=== PATIENT | female | born 1950 | race Caucasian/White ===

== ENCOUNTER 2021-02-23 19:33 | Emergency (ER) | payer MEDICARE, OTHER ==
[2021-02-23] MEDS ORDERED: Nitrofurantoin Monohydrate/Macrocrystalline 100 MG Cap PO ONE ×2 (19:34→21:35)
[2021-02-23 20:12] VITALS: BP 167/68; PULSE 73
--- NOTE | 2021-02-23 20:12 | CT ---
PROCEDURE INFORMATION: Exam: CT Head Without Contrast Exam date and time: 02/23/2021 8:00 PM Age: 70 years old Clinical indication: Speech disturbance; Additional info: Slurred speech TECHNIQUE: Imaging protocol: Computed tomography of the head without contrast. Radiation optimization: All CT scans at this facility use at least one of these dose optimization techniques: automated exposure control; mA and/or kV adjustment per patient size (includes targeted exams where dose is matched to clinical indication); or iterative reconstruction. Other technique: STROKE PROTOCOL was implemented. COMPARISON: (No prior similar studies are available for comparison.) FINDINGS: There is no mass lesion or mass effect. There is diffuse central and cortical atrophy consistent with age. There is no CT evidence of acute parenchymal ischemia. There is no intra-axial or extra-axial hemorrhage. There is no evidence of acute obstructive sinonasal disease. Mastoid air cells are grossly normal. Visualized osseous structures are normal. Other findings: EXAM TYPE: CT of the BRAIN; DATE AND TIME: 02/23/2021 8:00 PM; CLINICAL INFORMATION:; Speech disturbance; Additional info: Slurred speech IMPRESSION: 1. Central and cortical atrophy consistent with age. 2. No CT evidence of acute infarction, intracranial hemorrhage or mass. ASSESSMENT: ASPECTS ([place] Stroke Program Early CT Score) is 10.
--- NOTE | 2021-02-23 20:25 | EDM.PDOC ---
ED HPI GENERAL MEDICAL PROBLEM - General Chief Complaint: Neurological Problem Stated Complaint: SLURRED SPEECH Time Seen by Provider: 02/23/21 19:40 Source of Information: Reports: Patient, Family, RN, RN Notes Reviewed History Limitations: Reports: No Limitations - History of Present Illness INITIAL COMMENTS - FREE TEXT/NARRATIVE: Patient is a 70-year-old female who presents to ER with her with complaint of slurred speech. Patient's states they were coming in from the [place], and the patient was having difficulty speaking to her . Patient states it is getting better at this time but states she was unable to think of the words she wanted to say to him as well as get words out of her mouth. Patient states she is diabetic, had not checked her blood sugar, and did eat a candy bar on her way and to the ER. Patient states she had a headache that came on quickly while driving into town. Patient states her right arm was tingly and numb. 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 But the headache generally comes after those initial symptoms. Patient denies ever having Covid. States she has been vaccinated. Upon arrival to the ER, patient denies any visual disturbances, any recent illnesses. Admits to history of type 2 diabetes and ocular migraines. Patient rates headache 3-4/10. All symptoms have resolved upon arrival to the ER. NIH score = 0. Patient denies any urinary symptoms such as frequency, urgency, burning with urination. Onset: Today, Sudden - Related Data Allergies Allergy/AdvReac Type Severity Reaction Status Date / Time acetaminophen [From Percocet] AdvReac Nausea and Verified 02/23/21 20:12 Vomiting oxycodone HCl [From Percocet] AdvReac Nausea and Verified 02/23/21 20:12 Vomiting Home Meds: Home Meds metFORMIN [Glucophage] 1 tab PO TID 08/07/14 [History] Aspirin [Halfprin] 162 mg PO DAILY 01/26/15 [History] Lisinopril 2.5 mg PO BID 01/26/15 [History] Cholecalciferol (Vitamin D3) [Vitamin D] 5,000 unit PO DAILY 02/23/21 [History] Glimepiride 2 mg PO BID 02/23/21 [History] Magnesium Oxide 400 mg PO DAILY 02/23/21 [History] Multivitamin 1 each PO DAILY 02/23/21 [History] Pantoprazole [ProTONIX] 40 mg PO DAILY 02/23/21 [History] Pravastatin [Pravachol] 10 mg PO DAILY 02/23/21 [History] ED ROS GENERAL - Review of Systems Review Of Systems: Comprehensive ROS is negative, except as noted in HPI. ED EXAM, NEURO - Physical Exam Exam: See Below Exam Limited By: No Limitations General Appearance: Alert, WD/WN, No Apparent Distress, Anxious Eye Exam: Bilateral Eye: EOMI, Normal Inspection, PERRL (3 brisk) Ears: Normal External Exam, Hearing Grossly Normal Nose: Normal Inspection Throat/Mouth: Normal Inspection, Normal Voice, No Airway Compromise Head Exam: Atraumatic, Normocephalic Neck: Normal Inspection, Supple, Non-Tender, Full Range of Motion Respiratory/Chest: No Respiratory Distress, Lungs Clear, Normal Breath Sounds, No Accessory Muscle Use, Chest Non-Tender Cardiovascular: Normal Peripheral Pulses, Regular Rate, Rhythm, No Edema, No Gallop, No JVD, No Murmur, No Rub GI/Abdominal: Normal Bowel Sounds, Soft, Non-Tender, No Organomegaly, No Distention, No Abnormal Bruit, No Mass (Female) Exam: Deferred Rectal (Female) Exam: Deferred Neurological: Alert, Normal Mood/Affect, Normal Dorsiflexion, CN II-XII Intact, Normal Plantar Flexion, Normal Gait, Normal Reflexes, No Motor/Sensory Deficits, Oriented x 3 Back Exam: Normal Inspection, Full Range of Motion Extremities: Normal Inspection, Normal Range of Motion, Non-Tender, No Pedal Edema, Normal Capillary Refill Psychiatric: Normal Affect, Normal Mood, Anxious Skin Exam: Warm, Dry, Intact, Normal Color, No Rash #1 Interpretation EKG Date: 02/23/21 Time: 20:43 Rhythm: NSR Rate (Beats/Min): 65 P-Wave: Present QRS: LBBB ST-T: Normal QT: Normal Comparison: No Change Course - Vital Signs Last Recorded V/S: Last Vital Signs Temp 98.3 F 02/23/21 20:11 Pulse 73 02/23/21 20:11 Resp 16 02/23/21 20:11 BP 167/68 H 02/23/21 20:11 Pulse Ox 100 02/23/21 20:11 - Orders/Labs/Meds Orders: Active Orders 24 hr Category Date Time Status CULTURE URINE [RM] Stat Lab 02/23/21 20:49 Received Labs: Laboratory Tests 02/23/21 02/23/21 02/23/21 Range/Units 20:10 20:10 20:10 WBC 9.5 (5.0-10.0) 10^3/uL RBC 4.10 L (4.2-5.4) 10^6/uL Hgb 12.8 (12.0-16.0) g/dL Hct 38.9 (37.0-47.0) % MCV 94.9 (80-100) fL MCH 31.2 (27.0-34.0) pg MCHC 32.9 L (33.0-35.0) g/dL Plt Count 299 (150-450) 10^3/uL Neut % (Auto) 46.9 (42.2-75.2) % Lymph % (Auto) 43.4 (20.5-50.1) % [place] % (Auto) 7.0 (2-8) % Eos % (Auto) 2.4 (1.0-3.0) % Baso % (Auto) 0.3 (0.0-1.0) % PT 9.8 (9.0-12.0) SEC INR 1.0 (0.9-1.2) Sodium 141 (136-145) mmol/L Potassium 4.0 (3.5-5.1) mmol/L Chloride 103 (98-107) mmol/L Carbon Dioxide 24 (21-32) mmol/L Anion Gap 18.0 H (7-13) mEq/L BUN 27 H (7-18) mg/dL Creatinine 1.05 H (0.55-1.02) mg/dL Est Cr Clr Drug Dosing 47.34 mL/min Estimated GFR (MDRD) 52 BUN/Creatinine Ratio 25.7 (No establ ref range) Glucose 116 H (70-99) mg/dL POC Glucose (70-99) mg/dL Calcium 9.0 (8.5-10.1) mg/dL Magnesium 1.4 L (1.8-2.4) mg/dL Total Bilirubin 0.2 (0.2-1.0) mg/dL AST 13 L (15-37) U/L ALT 40 (14-59) U/L Alkaline Phosphatase 101 (46-116) U/L Troponin I < 0.017 (0.000-0.056) ng/mL C-Reactive Protein 0.2 (0.0-0.9) mg/dL Total Protein 7.8 (6.4-8.2) g/dL Albumin 3.9 (3.4-5.0) g/dL Globulin 3.9 Albumin/Globulin Ratio 1.0 Urine Color (YELLOW) Urine Appearance (CLEAR) Urine pH (5.0-9.0) Ur Specific [place] (1.005-1.030) Urine Protein (NEGATIVE) Urine Glucose (UA) (NEGATIVE) Urine Ketones (NEGATIVE) Urine Occult Blood (NEGATIVE) Urine Nitrite (NEGATIVE) Urine Bilirubin (NEGATIVE) Urine Urobilinogen (0.2-1.0) mg/dL Ur Leukocyte Esterase (NEGATIVE) Urine RBC /HPF Urine WBC (0-5/HPF) /HPF Ur Epithelial Cells (NOT SEEN) /HPF Urine Bacteria (0-FEW/HPF) /HPF Urine Opiates Screen (NEGATIVE) Ur Oxycodone Screen (NEGATIVE) Urine Methadone Screen (NEGATIVE) Ur Barbiturates Screen (NEGATIVE) U Tricyclic Antidepress (NEGATIVE) Ur Phencyclidine Scrn (NEGATIVE) Ur Amphetamine Screen (NEGATIVE) U Methamphetamines Scrn (NEGATIVE) Urine MDMA Screen (NEGATIVE) U Benzodiazepines Scrn (NEGATIVE) Urine Cocaine Screen (NEGATIVE) U Marijuana (THC) Screen (NEGATIVE) Ethyl Alcohol < 3 (0) mg/dL 02/23/21 02/23/21 02/23/21 Range/Units 20:18 20:49 20:49 WBC (5.0-10.0) 10^3/uL RBC (4.2-5.4) 10^6/uL Hgb (12.0-16.0) g/dL Hct (37.0-47.0) % MCV (80-100) fL MCH (27.0-34.0) pg MCHC (33.0-35.0) g/dL Plt Count (150-450) 10^3/uL Neut % (Auto) (42.2-75.2) % Lymph % (Auto) (20.5-50.1) % [place] % (Auto) (2-8) % Eos % (Auto) (1.0-3.0) % Baso % (Auto) (0.0-1.0) % PT (9.0-12.0) SEC INR (0.9-1.2) Sodium (136-145) mmol/L Potassium (3.5-5.1) mmol/L Chloride (98-107) mmol/L Carbon Dioxide (21-32) mmol/L Anion Gap (7-13) mEq/L BUN (7-18) mg/dL Creatinine (0.55-1.02) mg/dL Est Cr Clr Drug Dosing mL/min Estimated GFR (MDRD) BUN/Creatinine Ratio (No establ ref range) Glucose (70-99) mg/dL POC Glucose 109 H (70-99) mg/dL Calcium (8.5-10.1) mg/dL Magnesium (1.8-2.4) mg/dL Total Bilirubin (0.2-1.0) mg/dL AST (15-37) U/L ALT (14-59) U/L Alkaline Phosphatase (46-116) U/L Troponin I (0.000-0.056) ng/mL C-Reactive Protein (0.0-0.9) mg/dL Total Protein (6.4-8.2) g/dL Albumin (3.4-5.0) g/dL Globulin Albumin/Globulin Ratio Urine Color Yellow (YELLOW) Urine Appearance Slightly cloudy (CLEAR) Urine pH 5.0 (5.0-9.0) Ur Specific [place] 1.020 (1.005-1.030) Urine Protein Negative (NEGATIVE) Urine Glucose (UA) Negative (NEGATIVE) Urine Ketones Negative (NEGATIVE) Urine Occult Blood Trace-intact H (NEGATIVE) Urine Nitrite Negative (NEGATIVE) Urine Bilirubin Negative (NEGATIVE) Urine Urobilinogen 0.2 (0.2-1.0) mg/dL Ur Leukocyte Esterase Small H (NEGATIVE) Urine RBC 0-5 /HPF Urine WBC 10-20 H (0-5/HPF) /HPF Ur Epithelial Cells Moderate H (NOT SEEN) /HPF Urine Bacteria Moderate H (0-FEW/HPF) /HPF Urine Opiates Screen Negative (NEGATIVE) Ur Oxycodone Screen Negative (NEGATIVE) Urine Methadone Screen Negative (NEGATIVE) Ur Barbiturates Screen Negative (NEGATIVE) U Tricyclic Antidepress Negative (NEGATIVE) Ur Phencyclidine Scrn Negative (NEGATIVE) Ur Amphetamine Screen Negative (NEGATIVE) U Methamphetamines Scrn Negative (NEGATIVE) Urine MDMA Screen Negative (NEGATIVE) U Benzodiazepines Scrn Negative (NEGATIVE) Urine Cocaine Screen Negative (NEGATIVE) U Marijuana (THC) Screen Negative (NEGATIVE) Ethyl Alcohol (0) mg/dL Meds: Medications Discontinued Medications Generic Name Dose Route Start Last Admin Trade Name Freq PRN Reason Stop Dose Admin Acetaminophen 650 mg 02/23/21 23:36 02/23/21 23:48 Acetaminophen 325 Mg Tab PO 02/23/21 23:37 650 mg NOW ONE Administration Diphenhydramine HCl 25 mg 02/23/21 23:37 02/24/21 00:10 Diphenhydramine 50 Mg/Ml Sdv IVPUSH 02/23/21 23:38 Not Given ONETIME ONE Magnesium Sulfate/Dextrose 2 gm in 200 mls @ 100 mls/hr 02/23/21 21:20 02/23/21 21:43 Magnesium Sulfate In D5w 1 Gm/100 Ml IV 02/23/21 23:19 100 mls/hr ONETIME ONE Administration Sodium Chloride 1,000 mls @ 200 mls/hr 02/23/21 21:23 02/23/21 21:43 Normal Saline IV 02/24/21 02:22 200 mls/hr .BOLUS ONE Administration Magnesium Sulfate/Dextrose Confirm 02/23/21 23:24 02/23/21 23:48 Magnesium Sulfate In D5w 1 Gm/100 Ml Administered 02/23/21 23:25 100 mls/hr Dose Administration 1 gm in 100 mls @ as directed .[facility] Nitrofurantoin Macrocrystals 100 mg 02/23/21 21:35 02/23/21 21:55 Nitrofurantoin Monohydrate/Macrocrystalline 100 Mg Cap PO 02/23/21 21:36 100 mg ONETIME ONE Administration Nitrofurantoin Macrocrystals Confirm 02/24/21 00:43 Nitrofurantoin Monohydrate/Macrocrystalline 100 Mg Cap Administered 02/24/21 00:44 Dose 100 mg .ROUTE [facility] - Radiology Interpretation Free Text/Narrative:: Head CT: PROCEDURE INFORMATION: Exam: CT Head Without Contrast Exam date and time: 02/23/2021 8:00 PM Age: 70 years old Clinical indication: Speech disturbance; Additional info: Slurred speech TECHNIQUE: Imaging protocol: Computed tomography of the head without contrast. Radiation optimization: All CT scans at this facility use at least one of these dose optimization techniques: automated exposure control; mA and/or kV adjustment per patient size (includes targeted exams where dose is matched to clinical indication); or iterative reconstruction. Other technique: STROKE PROTOCOL was implemented. COMPARISON: (No prior similar studies are available for comparison.) FINDINGS: There is no mass lesion or mass effect. There is diffuse central and cortical atrophy consistent with age. There is no CT evidence of acute parenchymal ischemia. There is no intra-axial or extra-axial hemorrhage. There is no evidence of acute obstructive sinonasal disease. Mastoid air cells are grossly normal. Visualized osseous structures are normal. Other findings: EXAM TYPE: CT of the BRAIN; DATE AND TIME: 02/23/2021 8:00 PM; CLINICAL INFORMATION:; Speech disturbance; Additional info: Slurred speech IMPRESSION: 1. Central and cortical atrophy consistent with age. 2. No CT evidence of acute infarction, intracranial hemorrhage or mass. ASSESSMENT: ASPECTS ([place] Stroke Program Early CT Score) is 10. Thank you for allowing us to participate in the care of your patient. Dictated and Authenticated by: Pankaj Dias MD 02/23/2021 8:11 PM Central Time ([place] & [place]) See rad report - Re-Assessments/Exams Free Text/Narrative Re-Assessment/Exam: 02/24/21 04:46 Patient kept for extended ER for IV magnesium and monitored for any more signs or symptoms. Patient feeling well when Magnesium infusion completed. Departure - Departure Time of Disposition: 01:05 Disposition: Home, Self-Care 01 Condition: Good Clinical Impression: Hypomagnesemia, Stroke-like symptoms UTI (urinary tract infection) Qualifiers: Urinary tract infection type: site unspecified Hematuria presence: without hematuria Qualified Code(s): N39.0 - Urinary tract infection, site not specified - Discharge Information *PRESCRIPTION DRUG MONITORING PROGRAM REVIEWED*: No *COPY OF PRESCRIPTION DRUG MONITORING REPORT IN PATIENT DEYSI: No Instructions: Hypomagnesemia, Urinary Tract Infection, Adult, [id number]-[id number] Referrals: Eula Smart MD [Primary Care Provider] - Forms: ED Department Discharge Additional Instructions: RX: Macrobid 100mg orally twice daily for 5 days Return to the ER with any worsening of problems Follow up with your primary care facility Sepsis Event Note (ED) - Evaluation Sepsis Screening Result: No Definite Risk - Focused Exam Vital Signs: Vital Signs Temp Pulse Resp BP Pulse Ox 02/23/21 20:11 98.3 F 73 16 167/68 H 100 - My Orders Last 24 Hours: My Active Orders 02/23/21 20:49 CULTURE URINE [RM] Stat - Assessment/Plan Last 24 Hours: My Active Orders 02/23/21 20:49 CULTURE URINE [RM] Stat
[2021-02-23 20:40] LABS: CHLORIDE,CL 103 mmol/L (98-107); SODIUM,NA 141 mmol/L (136-145)
[2021-02-23] MEDS ORDERED: Magnesium Sulfate/D5W 2 GM/200 ML BAG IV ONE (21:20)
[2021-02-23] MEDS ORDERED: Sodium Chloride 0.9% 1,000 ML IV ONE (21:23)
[2021-02-23] MEDS ORDERED: Acetaminophen 325 MG Tab PO ONE (23:36)
[2021-02-23] MEDS ORDERED: diphenhydrAMINE 50 MG/ML SDV IVPUSH ONE (23:37)
[2021-02-23] MEDS: Magnesium Sulfate/D5W 1 GM/100 ML BAG ONE ×2 (23:38→23:48)
[2021-02-24] MEDS ORDERED: Nitrofurantoin Monohydrate/Macrocrystalline 100 MG Cap ONE (00:43)
== END 2021-02-24 01:05 | disposition home or self-care (01) ==
LOC: DL.ED 19:33
DX: I63.9 Cerebral infarction, unspecified (principal); N39.0 Urinary tract infection, site not specified; E83.42 Hypomagnesemia; Z88.5 Allergy status to narcotic agent; Z88.6 Allergy status to analgesic agent; Z79.82 Long term (current) use of aspirin; Z79.899 Other long term (current) drug therapy
CPT/HCPCS: 36415; 70450; 80053; 80305-QW; 80307; 81001; 82947; 83735; 84484; 85025; 85610; 86140; 87086; 93005; 93010; 96365; 96366; 99284; 99285-25; A9270-GY; J3475; J7030

== ENCOUNTER 2021-05-21 14:42 | Emergency (ER) | payer MEDICARE, OTHER ==
[2021-05-21] MEDS ORDERED: Sodium Chloride 0.9% 10 ML Syringe FLUSH PRN (15:04)
--- NOTE | 2021-05-21 15:27 | CT ---
PROCEDURE INFORMATION: Exam: CT Head Without Contrast Exam date and time: 05/21/2021 3:20 PM Age: 70 years old Clinical indication: Other: Stroke protocol: Right sided weakness, headache TECHNIQUE: Imaging protocol: Computed tomography of the head without contrast. Radiation optimization: All CT scans at this facility use at least one of these dose optimization techniques: automated exposure control; mA and/or kV adjustment per patient size (includes targeted exams where dose is matched to clinical indication); or iterative reconstruction. Other technique: STROKE PROTOCOL was implemented. COMPARISON: MR Brain wo Cont 03/04/2021 2:30 PM FINDINGS: Brain: Normal. No hemorrhage. Unremarkable white matter. No mass effect. Cerebral ventricles: No ventriculomegaly. Paranasal sinuses: Visualized sinuses are unremarkable. No fluid levels. Mastoid air cells: Visualized mastoid air cells are well aerated. Bones/joints: Unremarkable. No acute fracture. Soft tissues: Unremarkable. IMPRESSION: No acute intracranial abnormality. ASSESSMENT: ASPECTS ([place] Stroke Program Early CT Score) is 10.
--- NOTE | 2021-05-21 15:37 | CR ---
PROCEDURE INFORMATION: Exam: XR Chest Exam date and time: 05/21/2021 3:30 PM Age: 70 years old Clinical indication: Other: Cva/tia, possible aspirtation TECHNIQUE: Imaging protocol: XR of the chest. Views: 1 view. COMPARISON: No relevant prior studies available. FINDINGS: Lungs: Unremarkable. No consolidation. Pleural spaces: Unremarkable. No pleural effusion. No pneumothorax. Heart/Mediastinum: Unremarkable. No cardiomegaly. Bones/joints: Unremarkable. IMPRESSION: No acute findings.
[2021-05-21 15:42] LABS: PTT,PARTIAL THROMBOPLSTIN TIME 22.5 SEC (22.0-34.0)
[2021-05-21 15:53] LABS: ANION GAP 15.3 mEq/L (7-13); CHLORIDE,CL 102 mmol/L (98-107); SODIUM,NA 139 mmol/L (136-145)
[2021-05-21] MEDS ORDERED: Magnesium Sulfate/Water 2 GM in Premix Bag 1 BAG IV ONE (15:57)
[2021-05-21 16:42] LABS: AMPHETAMINES,URINE NEGATIVE (NEGATIVE); BARBITURATES,URINE NEGATIVE (NEGATIVE); BENZODIAZEPINE,URINE NEGATIVE (NEGATIVE); MDMA (ECSTASY), URINE NEGATIVE (NEGATIVE); METHADONE,URINE NEGATIVE (NEGATIVE); METHAMPHETAMINES,URINE NEGATIVE (NEGATIVE); OPIATES,URINE NEGATIVE (NEGATIVE); OXYCODONE,URINE NEGATIVE (NEGATIVE); PHENCYCLIDINE,URINE NEGATIVE (NEGATIVE); TCA,URINE NEGATIVE (NEGATIVE)
[2021-05-21] MEDS ORDERED: Ketorolac 30 MG/ML SDV IVPUSH ONE (16:55)
[2021-05-21 18:41] VITALS: BP 133/49; PULSE 58
--- NOTE | 2021-05-21 18:54 | EDM.PDOC ---
"Scribed by Deborah Rollins 05/21/21 0597 for Lisandra Rahman MD ED HPI GENERAL MEDICAL PROBLEM - General Chief Complaint: Neurological Problem Stated Complaint: DULL HEADACHE Time Seen by Provider: 05/21/21 15:10 Source of Information: Reports: Patient, Family, RN History Limitations: Reports: No Limitations - History of Present Illness INITIAL COMMENTS - FREE TEXT/NARRATIVE: 70 y/o F c/o intermittent stroke like symptoms. This morning the pt came i from watering her [place] around 10 am and noticed her whole R arm went numb and she was unable to write down some notes. Pt also reports she was have difficulty speaking while reading a sentence out loud at home. The symptoms lasted about an hour and then resolved on there own without intervention. Currently pt c/o only a PATEL over the top of oth her eyes. Pt has a similar experience in february of this year which again resolved without intervention. An MRI of the brain was completed after the first incident which was unremarkable. Other hx of diabetes. Denies fever, cough, chills, drugs, etoh, recent trauma, cp, db, abd pn, diff voiding. Onset: Today, Sudden Duration: Hour(s): Location: Reports: Generalized Severity: Mild Improves with: Reports: None Worsens with: Reports: None Headache Pain Score (Numeric/FACES): 2 - Related Data Allergies Allergy/AdvReac Type Severity Reaction Status Date / Time acetaminophen [From Percocet] AdvReac Nausea and Verified 05/21/21 15:50 Vomiting oxycodone HCl [From Percocet] AdvReac Nausea and Verified 05/21/21 15:50 Vomiting Home Meds: Home Meds metFORMIN [Glucophage] 1 tab PO TID 08/07/14 [History] Aspirin [Halfprin] 162 mg PO DAILY 01/26/15 [History] Lisinopril 2.5 mg PO BID 01/26/15 [History] Cholecalciferol (Vitamin D3) [Vitamin D] 5,000 unit PO DAILY 02/23/21 [History] Glimepiride 2 mg PO BID 02/23/21 [History] Magnesium Oxide 400 mg PO DAILY 02/23/21 [History] Multivitamin 1 each PO DAILY 02/23/21 [History] Pantoprazole [ProTONIX] 40 mg PO DAILY 02/23/21 [History] Pravastatin [Pravachol] 10 mg PO DAILY 02/23/21 [History] Bifidobacterium Infantis [Align] 21 mg PO DAILY 05/21/21 [History] Past Medical History Cardiovascular History: Reports: High Cholesterol, Hypertension Neurological History: Reports: Migraines Endocrine/Metabolic History: Reports: Diabetes, Type II Social & Family History - Caffeine Use Caffeine Use: Reports: None ED ROS GENERAL - Review of Systems Review Of Systems: Comprehensive ROS is negative, except as noted in HPI. ED EXAM, NEURO - Physical Exam Exam: See Below Exam Limited By: No Limitations General Appearance: Alert, WD/WN, No Apparent Distress Eye Exam: Bilateral Eye: PERRL Ears: Normal External Exam, Normal Canal, Hearing Grossly Normal, Normal TMs Nose: Normal Inspection, Normal Mucosa, No Blood Throat/Mouth: Normal Inspection, Normal Lips, Normal Teeth, Normal Gums, Normal Oropharynx, Normal Voice, No Airway Compromise Head Exam: Atraumatic, Normocephalic Neck: Normal Inspection, Supple, Non-Tender, Full Range of Motion Respiratory/Chest: No Respiratory Distress, Lungs Clear, Normal Breath Sounds, No Accessory Muscle Use, Chest Non-Tender Cardiovascular: Normal Peripheral Pulses, Regular Rate, Rhythm, No Edema, No Gallop, No JVD, No Murmur, No Rub GI/Abdominal: Normal Bowel Sounds, Soft, Non-Tender, No Organomegaly, No Distention, No Abnormal Bruit, No Mass (Female) Exam: Deferred Rectal (Female) Exam: Deferred Back Exam: Normal Inspection, Full Range of Motion Extremities: Normal Inspection, Normal Range of Motion, Non-Tender, No Pedal Edema, Normal Capillary Refill Psychiatric: Normal Affect Skin Exam: Warm, Dry, Intact, Normal Color, No Rash #1 Interpretation EKG Date: 05/21/21 Time: 15:14 Rhythm: Other (Sinus arrhythmia) Rate (Beats/Min): 68 [place]: LAD-Left [place] Deviation P-Wave: Present QRS: LBBB ST-T: Other (LBBB) QT: Normal Comparison: No Change (Chronic LBBB) Course - Vital Signs Last Recorded V/S: Last Vital Signs Temp 97.0 F 05/21/21 18:41 Pulse 58 L 05/21/21 18:41 Resp 15 05/21/21 18:41 BP 133/49 L 05/21/21 18:41 Pulse Ox 100 05/21/21 18:41 - Orders/Labs/Meds Orders: Active Orders 24 hr Category Date Time Status Blood Glucose Check, Bedside [] ONETIME Care 05/21/21 15:01 Active EKG 12 Lead [EKG Documentation Completion] [RC] STAT Care 05/21/21 15:04 Active Peripheral IV Care [RC] . DIRECTED Care 05/21/21 15:04 Active Sodium Chloride 0.9% [Saline Flush] Med 05/21/21 15:04 Active 10 ml FLUSH ASDIRECTED PRN Peripheral IV Insertion Adult [OM.PC] Stat Oth 05/21/21 15:04 Ordered Medication Orders Sodium Chloride (Sodium Chloride 0.9% 10 Ml Syringe) 10 ml FLUSH ASDIRECTED PRN PRN Reason: Keep Vein Open Last Admin: 05/21/21 16:41 Dose: 10 ml Documented by: EPPE Labs: Laboratory Tests 05/21/21 05/21/21 05/21/21 Range/Units 15:04 15:19 15:19 WBC 9.2 (5.0-10.0) 10^3/uL RBC 3.98 L (4.2-5.4) 10^6/uL Hgb 12.4 (12.0-16.0) g/dL Hct 37.7 (37.0-47.0) % MCV 94.7 (80-100) fL MCH 31.2 (27.0-34.0) pg MCHC 32.9 L (33.0-35.0) g/dL Plt Count 265 (150-450) 10^3/uL Neut % (Auto) 69.0 (42.2-75.2) % Lymph % (Auto) 23.3 (20.5-50.1) % [place] % (Auto) 6.1 (2-8) % Eos % (Auto) 1.4 (1.0-3.0) % Baso % (Auto) 0.2 (0.0-1.0) % PT (9.0-12.0) SEC INR (0.9-1.2) APTT (22.0-34.0) SEC Sodium 139 (136-145) mmol/L Potassium 4.3 (3.5-5.1) mmol/L Chloride 102 (98-107) mmol/L Carbon Dioxide 26 (21-32) mmol/L Anion Gap 15.3 H (7-13) mEq/L BUN 18 (7-18) mg/dL Creatinine 0.87 (0.55-1.02) mg/dL Est Cr Clr Drug Dosing 57.13 mL/min Estimated GFR (MDRD) > 60 BUN/Creatinine Ratio 20.7 (No establ ref range) Glucose 149 H (70-99) mg/dL POC Glucose 146 H (70-99) mg/dL Lactic Acid (0.4-2.0) mmol/L Calcium 8.8 (8.5-10.1) mg/dL Magnesium 1.5 L (1.8-2.4) mg/dL Total Bilirubin 0.2 (0.2-1.0) mg/dL AST 14 L (15-37) U/L ALT 40 (14-59) U/L Alkaline Phosphatase 98 (46-116) U/L Troponin I High Sens 7 (<=51) pg/mL C-Reactive Protein < 0.2 (0.0-0.9) mg/dL Total Protein 7.5 (6.4-8.2) g/dL Albumin 3.8 (3.4-5.0) g/dL Globulin 3.7 Albumin/Globulin Ratio 1.0 TSH, Ultra Sensitive 0.62 (0.36-3.74) uIU/mL Urine Color (YELLOW) Urine Appearance (CLEAR) Urine pH (5.0-9.0) Ur Specific [place] (1.005-1.030) Urine Protein (NEGATIVE) Urine Glucose (UA) (NEGATIVE) Urine Ketones (NEGATIVE) Urine Occult Blood (NEGATIVE) Urine Nitrite (NEGATIVE) Urine Bilirubin (NEGATIVE) Urine Urobilinogen (0.2-1.0) mg/dL Ur Leukocyte Esterase (NEGATIVE) Urine Opiates Screen (NEGATIVE) Ur Oxycodone Screen (NEGATIVE) Urine Methadone Screen (NEGATIVE) Ur Barbiturates Screen (NEGATIVE) U Tricyclic Antidepress (NEGATIVE) Ur Phencyclidine Scrn (NEGATIVE) Ur Amphetamine Screen (NEGATIVE) U Methamphetamines Scrn (NEGATIVE) Urine MDMA Screen (NEGATIVE) U Benzodiazepines Scrn (NEGATIVE) Urine Cocaine Screen (NEGATIVE) U Marijuana (THC) Screen (NEGATIVE) Ethyl Alcohol < 3 (0) mg/dL 05/21/21 05/21/21 05/21/21 Range/Units 15:19 15:19 16:20 WBC (5.0-10.0) 10^3/uL RBC (4.2-5.4) 10^6/uL Hgb (12.0-16.0) g/dL Hct (37.0-47.0) % MCV (80-100) fL MCH (27.0-34.0) pg MCHC (33.0-35.0) g/dL Plt Count (150-450) 10^3/uL Neut % (Auto) (42.2-75.2) % Lymph % (Auto) (20.5-50.1) % [place] % (Auto) (2-8) % Eos % (Auto) (1.0-3.0) % Baso % (Auto) (0.0-1.0) % PT 9.9 (9.0-12.0) SEC INR 1.0 (0.9-1.2) APTT 22.5 (22.0-34.0) SEC Sodium (136-145) mmol/L Potassium (3.5-5.1) mmol/L Chloride (98-107) mmol/L Carbon Dioxide (21-32) mmol/L Anion Gap (7-13) mEq/L BUN (7-18) mg/dL Creatinine (0.55-1.02) mg/dL Est Cr Clr Drug Dosing mL/min Estimated GFR (MDRD) BUN/Creatinine Ratio (No establ ref range) Glucose (70-99) mg/dL POC Glucose (70-99) mg/dL Lactic Acid 2.8 H* (0.4-2.0) mmol/L Calcium (8.5-10.1) mg/dL Magnesium (1.8-2.4) mg/dL Total Bilirubin (0.2-1.0) mg/dL AST (15-37) U/L ALT (14-59) U/L Alkaline Phosphatase (46-116) U/L Troponin I High Sens (<=51) pg/mL C-Reactive Protein (0.0-0.9) mg/dL Total Protein (6.4-8.2) g/dL Albumin (3.4-5.0) g/dL Globulin Albumin/Globulin Ratio TSH, Ultra Sensitive (0.36-3.74) uIU/mL Urine Color Yellow (YELLOW) Urine Appearance Clear (CLEAR) Urine pH 5.5 (5.0-9.0) Ur Specific [place] 1.025 (1.005-1.030) Urine Protein Negative (NEGATIVE) Urine Glucose (UA) Negative (NEGATIVE) Urine Ketones Negative (NEGATIVE) Urine Occult Blood Negative (NEGATIVE) Urine Nitrite Negative (NEGATIVE) Urine Bilirubin Negative (NEGATIVE) Urine Urobilinogen 0.2 (0.2-1.0) mg/dL Ur Leukocyte Esterase Negative (NEGATIVE) Urine Opiates Screen (NEGATIVE) Ur Oxycodone Screen (NEGATIVE) Urine Methadone Screen (NEGATIVE) Ur Barbiturates Screen (NEGATIVE) U Tricyclic Antidepress (NEGATIVE) Ur Phencyclidine Scrn (NEGATIVE) Ur Amphetamine Screen (NEGATIVE) U Methamphetamines Scrn (NEGATIVE) Urine MDMA Screen (NEGATIVE) U Benzodiazepines Scrn (NEGATIVE) Urine Cocaine Screen (NEGATIVE) U Marijuana (THC) Screen (NEGATIVE) Ethyl Alcohol (0) mg/dL 05/21/21 05/21/21 Range/Units 16:20 17:18 WBC (5.0-10.0) 10^3/uL RBC (4.2-5.4) 10^6/uL Hgb (12.0-16.0) g/dL Hct (37.0-47.0) % MCV (80-100) fL MCH (27.0-34.0) pg MCHC (33.0-35.0) g/dL Plt Count (150-450) 10^3/uL Neut % (Auto) (42.2-75.2) % Lymph % (Auto) (20.5-50.1) % [place] % (Auto) (2-8) % Eos % (Auto) (1.0-3.0) % Baso % (Auto) (0.0-1.0) % PT (9.0-12.0) SEC INR (0.9-1.2) APTT (22.0-34.0) SEC Sodium (136-145) mmol/L Potassium (3.5-5.1) mmol/L Chloride (98-107) mmol/L Carbon Dioxide (21-32) mmol/L Anion Gap (7-13) mEq/L BUN (7-18) mg/dL Creatinine (0.55-1.02) mg/dL Est Cr Clr Drug Dosing mL/min Estimated GFR (MDRD) BUN/Creatinine Ratio (No establ ref range) Glucose (70-99) mg/dL POC Glucose 100 H (70-99) mg/dL Lactic Acid (0.4-2.0) mmol/L Calcium (8.5-10.1) mg/dL Magnesium (1.8-2.4) mg/dL Total Bilirubin (0.2-1.0) mg/dL AST (15-37) U/L ALT (14-59) U/L Alkaline Phosphatase (46-116) U/L Troponin I High Sens (<=51) pg/mL C-Reactive Protein (0.0-0.9) mg/dL Total Protein (6.4-8.2) g/dL Albumin (3.4-5.0) g/dL Globulin Albumin/Globulin Ratio TSH, Ultra Sensitive (0.36-3.74) uIU/mL Urine Color (YELLOW) Urine Appearance (CLEAR) Urine pH (5.0-9.0) Ur Specific [place] (1.005-1.030) Urine Protein (NEGATIVE) Urine Glucose (UA) (NEGATIVE) Urine Ketones (NEGATIVE) Urine Occult Blood (NEGATIVE) Urine Nitrite (NEGATIVE) Urine Bilirubin (NEGATIVE) Urine Urobilinogen (0.2-1.0) mg/dL Ur Leukocyte Esterase (NEGATIVE) Urine Opiates Screen Negative (NEGATIVE) Ur Oxycodone Screen Negative (NEGATIVE) Urine Methadone Screen Negative (NEGATIVE) Ur Barbiturates Screen Negative (NEGATIVE) U Tricyclic Antidepress Negative (NEGATIVE) Ur Phencyclidine Scrn Negative (NEGATIVE) Ur Amphetamine Screen Negative (NEGATIVE) U Methamphetamines Scrn Negative (NEGATIVE) Urine MDMA Screen Negative (NEGATIVE) U Benzodiazepines Scrn Negative (NEGATIVE) Urine Cocaine Screen Negative (NEGATIVE) U Marijuana (THC) Screen Negative (NEGATIVE) Ethyl Alcohol (0) mg/dL Meds: Medications Generic Name Dose Route Start Last Admin Trade Name Freq PRN Reason Stop Dose Admin Sodium Chloride 10 ml 05/21/21 15:04 05/21/21 16:41 Sodium Chloride 0.9% 10 Ml Syringe FLUSH 10 ml ASDIRECTED PRN Administration Keep Vein Open Discontinued Medications Generic Name Dose Route Start Last Admin Trade Name Freq PRN Reason Stop Dose Admin Magnesium Sulfate 2 gm/ Premix 50 mls @ 25 mls/hr 05/21/21 15:57 05/21/21 16:41 IV 05/21/21 17:56 25 mls/hr ONETIME ONE Administration Ketorolac Tromethamine 30 mg 05/21/21 16:55 05/21/21 17:21 Ketorolac 30 Mg/Ml Sdv IVPUSH 05/21/21 16:56 30 mg ONETIME ONE Administration - Radiology Interpretation Free Text/Narrative:: [facility] Final Radiology Report Call: [phone] assistance Online chat: [email or web address] Name: MARY GRACE ROY Age: 70Years F Date: 05/21/2021 SSN: -- : [id number] Study: CT HEAD WO CONT Requesting Physician: LISANDRA RAHMAN Images: 136 Addl Studies: Provided Clinical History: STROKE PROTOCOL: Right sided weakness, headache Contrast: Without Contrast Medium: Contrast Amount: Contrast Method: Page 1 of 2 PROCEDURE INFORMATION: Exam: CT Head Without Contrast Exam date and time: 05/21/2021 3:20 PM Age: 70 years old Clinical indication: Other: Stroke protocol: Right sided weakness, headache TECHNIQUE: Imaging protocol: Computed tomography of the head without contrast. Radiation optimization: All CT scans at this facility use at least one of these dose optimization techniques: automated exposure control; mA and/or kV adjustment per patient size (includes targeted exams where dose is matched to clinical indication); or iterative reconstructi on. Other technique: STROKE PROTOCOL was implemented. COMPARISON: MR Brain wo Cont 03/04/2021 2:30 PM FINDINGS: Brain: Normal. No hemorrhage. Unremarkable white matter. No mass effect. Cerebral ventricles: No ventriculomegaly. Paranasal sinuses: Visualized sinuses are unremarkable. No fluid levels. Mastoid air cells: Visualized mastoid air cells are well aerated. Bones/joints: Unremarkable. No acute fracture. Soft tissues: Unremarkable. IMPRESSION: No acute intracranial abnormality. ASSESSMENT: ASPECTS ([place] Stroke Program Early CT Score) is 10. MARY GRACE ROY | Final Radiology Report CONFIDENTIALITY STATEMENT This report is intended only for use by the referring physician, and only in accordance with law. If you received this in error, call [phone]. Page 2 of 2 Thank you for allowing us to participate in the care of your patient. Dictated and Authenticated by: Andrey Garcia MD 05/21/2021 3:27 PM Central Time ([place] & [place]) [facility] Final Radiology Report Call: [phone] assistance Online chat: [email or web address] Name: MARY GRACE ROY Age: 70Years F Date: 05/21/2021 SSN: -- : [id number] Study: CR CHEST 1V FRONTAL Requesting Physician: LISANDRA RAHMAN Images: 1 Addl Studies: Provided Clinical History: CVA/TIA, possible aspirtation Contrast: Contrast Medium: Contrast Amount: Contrast Method: CONFIDENTIALITY STATEMENT This report is intended only for use by the referring physician, and only in accordance with law. If you received this in error, call [phone]. Page 1 of 1 PROCEDURE INFORMATION: Exam: XR Chest Exam date and time: 05/21/2021 3:30 PM Age: 70 years old Clinical indication: Other: Cva/tia, possible aspirtation TECHNIQUE: Imaging protocol: XR of the chest. Views: 1 view. COMPARISON: No relevant prior studies available. FINDINGS: Lungs: Unremarkable. No consolidation. Pleural spaces: Unremarkable. No pleural effusion. No pneumothorax. Heart/Mediastinum: Unremarkable. No cardiomegaly. Bones/joints: Unremarkable. IMPRESSION: No acute findings. Thank you for allowing us to participate in the care of your patient. Dictated and Authenticated by: Andrey Garcia MD 05/21/2021 3:37 PM Central Time ([place] & [place]) - Re-Assessments/Exams Free Text/Narrative Re-Assessment/Exam: 05/21/21 18:51 Pt remained symptom free throughout the ER stay. Departure - Departure Time of Disposition: 18:51 Disposition: Home, Self-Care 01 Condition: Good Clinical Impression: TIA (transient ischemic attack) - Discharge Information *PRESCRIPTION DRUG MONITORING PROGRAM REVIEWED*: Not Applicable *COPY OF PRESCRIPTION DRUG MONITORING REPORT IN PATIENT DEYSI: Not Applicable Instructions: Transient Ischemic Attack, [id number] Forms: ED Department Discharge Additional Instructions: Continue Aspirin 162mg daily. Follow up in clinic with your primary doctor tomorrow for recheck and referral to neurologist for further evaluation. Return to ER if symptoms return or worsen. Sepsis Event Note (ED) - Focused Exam Vital Signs: Vital Signs Temp Pulse Resp BP Pulse Ox 05/21/21 18:41 97.0 F 58 L 15 133/49 L 100 05/21/21 17:26 96.9 F 63 15 155/69 H 100 05/21/21 15:13 98.2 F 76 20 168/100 H 99 - My Orders Last 24 Hours: My Active Orders 05/21/21 15:01 Blood Glucose Check, Bedside [RC] ONETIME 05/21/21 15:04 EKG 12 Lead [EKG Documentation Completion] [RC] STAT Peripheral IV Care [RC] . DIRECTED Sodium Chloride 0.9% [Saline Flush] 10 ml FLUSH ASDIRECTED PRN Peripheral IV Insertion Adult [OM.PC] Stat - Assessment/Plan Last 24 Hours: My Active Orders 05/21/21 15:01 Blood Glucose Check, Bedside [RC] ONETIME 05/21/21 15:04 EKG 12 Lead [EKG Documentation Completion] [RC] STAT Peripheral IV Care [RC] . DIRECTED Sodium Chloride 0.9% [Saline Flush] 10 ml FLUSH ASDIRECTED PRN Peripheral IV Insertion Adult [OM.PC] Stat I have read and agree with the documentation that has been completed regarding this visit. By signing this record, I attest that the documentation was completed in my physical presence and is an accurate record of the encounter."
== END 2021-05-21 19:36 | disposition home or self-care (01) ==
LOC: DL.ED 14:42
DX: G45.9 Transient cerebral ischemic attack, unspecified (principal); I10 Essential (primary) hypertension; E11.9 Type 2 diabetes mellitus without complications; E78.00 Pure hypercholesterolemia, unspecified; Z79.899 Other long term (current) drug therapy; Z88.5 Allergy status to narcotic agent; Z79.82 Long term (current) use of aspirin; Z79.84 Long term (current) use of oral hypoglycemic drugs
CPT/HCPCS: 36415; 70450; 71045; 80053; 80305; 80307; 81003; 82947; 83605; 83735; 84443; 84484; 85025; 85610; 85730; 86140; 93005; 96365; 96366; 96375; 99285; J1885; J3475

== ENCOUNTER 2023-10-22 12:48 | Emergency (ER) | payer MEDICARE, OTHER ==
[2023-10-22 13:26] LABS: BASOPHILS PERCENT AUTO 0.3 % (0.0-1.0); EOSINOPHILS PERCENT AUTO 1.3 % (1.0-3.0); HEMATOCRIT 38.1 % (37.0-47.0); HEMOGLOBIN 12.6 g/dL (12.0-16.0); LYMPHOCYTES PERCENT AUTO 28.5 % (20.5-50.1); MEAN CORPUSCULAR HGB CONC 33.1 g/dL (33.0-35.0); MEAN CORPUSCULAR VOLUME 93.6 fL (80-100); MONOCYTES PERCENT AUTO 7.4 % (2-8); NEUTROPHILS PERCENT AUTO 62.5 % (42.2-75.2); PLATELET COUNT,PLT 236 10^3/uL (150-450); RED BLOOD CELL COUNT 4.07 10^6/uL (4.2-5.4); WHITE BLOOD CELL COUNT,WBC 6.2 10^3/uL (5.0-10.0)
[2023-10-22 13:43] LABS: B-TYPE NATRIURETIC PEPTIDE,BNP 97 pg/ml (0-100); PROTHROMBIN TIME 9.9 SEC (9.0-12.0); PTT,PARTIAL THROMBOPLSTIN TIME 23.6 SEC (22.0-34.0)
[2023-10-22 13:48] LABS: ALANINE AMINOTRANSFERASE,ALT 27 U/L (14-59); ALBUMIN 3.6 g/dL (3.4-5.0); ALKALINE PHOSPHATASE 96 U/L (46-116); ANION GAP 16.2 mEq/L (7-13); ASPARTATE AMNIOTRANSFERASE,AST 12 U/L (15-37); BILIRUBIN TOTAL 0.3 mg/dL (0.2-1.0); BLOOD UREA NITROGEN,BUN 16 mg/dL (7-18); CARBON DIOXIDE,CO2 26 mmol/L (21-32); CHLORIDE,CL 101 mmol/L (98-107); CREATININE 0.84 mg/dL (0.55-1.02); EST CRCL DRUG DOSING (CG) 56.67 mL/min; GLUCOSE RANDOM 164 mg/dL (70-99); POTASSIUM,K 4.2 mmol/L (3.5-5.1); PROTEIN TOTAL,TP 7.3 g/dL (6.4-8.2); SODIUM,NA 139 mmol/L (136-145)
[2023-10-22 13:51] LABS: C-REACTIVE PROTEIN < 0.50 ng/dL (<=0.50); ESTIMATED GFR 74 mL/min (>=60); ETHANOL BLOOD MEDICAL < 3 mg/dL (0); LACTIC ACID 0.8 mmol/L (0.4-2.0)
[2023-10-22 14:06] LABS: APPEARANCE,URINE CLEAR (CLEAR); BILIRUBIN,URINE NEGATIVE (NEGATIVE); COLOR,URINE YELLOW (YELLOW); GLUCOSE,URINE NEGATIVE (NEGATIVE); KETONES,URINE NEGATIVE (NEGATIVE); LEUKOCYTE ESTERASE,URINE NEGATIVE (NEGATIVE); NITRITE,URINE NEGATIVE (NEGATIVE); OCCULT BLOOD,URINE NEGATIVE (NEGATIVE); PH,URINE 6.5 (5.0-9.0); PROTEIN,URINE NEGATIVE (NEGATIVE); UROBILINOGEN,URINE 0.2 mg/dL (0.2-1.0)
[2023-10-22 14:08] VITALS: PULSE 50
[2023-10-22 14:12] LABS: AMPHETAMINES,URINE NEGATIVE (NEGATIVE); BARBITURATES,URINE NEGATIVE (NEGATIVE); BENZODIAZEPINE,URINE NEGATIVE (NEGATIVE); MDMA (ECSTASY), URINE NEGATIVE (NEGATIVE); METHADONE,URINE NEGATIVE (NEGATIVE); METHAMPHETAMINES,URINE NEGATIVE (NEGATIVE); OPIATES,URINE NEGATIVE (NEGATIVE); OXYCODONE,URINE NEGATIVE (NEGATIVE); PHENCYCLIDINE,URINE NEGATIVE (NEGATIVE); TCA,URINE NEGATIVE (NEGATIVE)
[2023-10-22 15:19] VITALS: BP 119/107
== END 2023-10-22 15:19 | disposition home or self-care (01) ==
LOC: DL.ED 12:48
DX: R07.89 Other chest pain (principal); R00.2 Palpitations; R00.1 Bradycardia, unspecified; I10 Essential (primary) hypertension; E78.00 Pure hypercholesterolemia, unspecified; E11.9 Type 2 diabetes mellitus without complications; Z79.899 Other long term (current) drug therapy; Z79.84 Long term (current) use of oral hypoglycemic drugs; Z79.82 Long term (current) use of aspirin; Z88.5 Allergy status to narcotic agent
CPT/HCPCS: 36415; 71045; 80053; 80305-QW; 80307; 81003; 83605; 83880; 84484; 85025; 85379; 85610; 85730; 86140; 93005; 93010; 99284; 99285

== ENCOUNTER 2024-04-07 11:31 | Emergency (ER) | payer MEDICARE, OTHER ==
[2024-04-07] MEDS ORDERED: Lidocaine 2% 100 MG/5 ML Syringe ONE (11:46)
[2024-04-07 12:05] LABS: BASOPHILS PERCENT AUTO 0.3 % (0.0-1.0); EOSINOPHILS PERCENT AUTO 1.1 % (1.0-3.0); HEMATOCRIT 39.9 % (37.0-47.0); HEMOGLOBIN 13.3 g/dL (12.0-16.0); LYMPHOCYTES PERCENT AUTO 33.5 % (20.5-50.1); MEAN CORPUSCULAR HEMOGLOBIN 31.2 pg (27.0-34.0); MEAN CORPUSCULAR HGB CONC 33.3 g/dL (33.0-35.0); MEAN CORPUSCULAR VOLUME 93.7 fL (80-100); MONOCYTES PERCENT AUTO 6.6 % (2-8); NEUTROPHILS PERCENT AUTO 58.5 % (42.2-75.2); PLATELET COUNT,PLT 277 10^3/uL (150-450); RED BLOOD CELL COUNT 4.26 10^6/uL (4.2-5.4); WHITE BLOOD CELL COUNT,WBC 7.8 10^3/uL (5.0-10.0)
[2024-04-07 12:21] LABS: ANION GAP 16.3 mEq/L (7-13); CALCIUM 9.2 mg/dL (8.5-10.1); CREATININE 0.97 mg/dL (0.55-1.02); EST CRCL DRUG DOSING (CG) 47.17 mL/min; MAGNESIUM 1.4 mg/dL (1.8-2.4); POTASSIUM,K 4.3 mmol/L (3.5-5.1)
[2024-04-07 12:28] LABS: APPEARANCE,URINE CLEAR (CLEAR); BILIRUBIN,URINE NEGATIVE (NEGATIVE); COLOR,URINE YELLOW (YELLOW); GLUCOSE,URINE NEGATIVE (NEGATIVE); KETONES,URINE NEGATIVE (NEGATIVE); LEUKOCYTE ESTERASE,URINE NEGATIVE (NEGATIVE); NITRITE,URINE NEGATIVE (NEGATIVE); OCCULT BLOOD,URINE NEGATIVE (NEGATIVE); PH,URINE 5.5 (5.0-9.0); PROTEIN,URINE NEGATIVE (NEGATIVE); UROBILINOGEN,URINE 0.2 mg/dL (0.2-1.0)
[2024-04-07] MEDS: Magnesium Sulfate/Water 2 GM in Premix Bag 1 BAG IV ONE (12:35)
[2024-04-07] MEDS: Sodium Chloride 0.9% 10 ML Syringe FLUSH PRN (12:36)
[2024-04-07 12:40] LABS: T4 FREE 1.09 ng/dL (0.76-1.46); TSH ULTRASENSITIVE 0.58 uIU/mL (0.36-3.74)
[2024-04-07] MEDS: Lidocaine 2% 20 ML MDV ONE (12:59)
[2024-04-07 13:32] VITALS: BP 150/83; PULSE 59
== END 2024-04-07 14:35 | disposition home or self-care (01) ==
LOC: DL.ED 11:31
DX: G43.811 Other migraine, intractable, with status migrainosus (principal); I10 Essential (primary) hypertension; E78.00 Pure hypercholesterolemia, unspecified; E11.9 Type 2 diabetes mellitus without complications; Z88.6 Allergy status to analgesic agent; Z88.5 Allergy status to narcotic agent; Z79.84 Long term (current) use of oral hypoglycemic drugs; Z79.899 Other long term (current) drug therapy; Z90.49 Acquired absence of other specified parts of digestive tract
CPT/HCPCS: 36415; 80048; 81003; 83735; 84439; 84443; 85025; 86140; 96365; 96366; 99283; J3475; J3490